=== PATIENT | male | born 1995 | race American Indian/Alaskan Native ===

== ENCOUNTER 2017-04-28 20:50 | Emergency (ER) | payer OTHER ==
[2017-04-28 21:41] VITALS: BP 144/74
[2017-04-28] MEDS ORDERED: NACL 0.9% 1000 ML 1,000 ML IV ONE (21:41)
[2017-04-28 22:37] LABS: Alanine Aminotransferase 23 units/L (7-56); BUN/Creatinine Ratio 8; Blood Urea Nitrogen 8 mg/dL (9-20); Hemolysis Index 8; Lipase 27 units/L (13-60)
[2017-04-28 22:54] LABS: Basophils % (Auto) 0.3 % (0.0-1.8); Eosinophils # (Auto) 0.8 K/mm3 (0.0-0.4); Eosinophils % (Auto) 11.4 % (0.0-4.3); Hematocrit 42.5 % (35.5-45.6); Hemoglobin 14.1 gm/dl (11.8-15.2); Lymphocytes % (Auto) 40.4 % (13.4-35.0); Mean Corpuscular HGB Conc 33 % (32-34); Mean Corpuscular Hemoglobin 29 pg (28-32); Mean Corpuscular Volume 87 fl (84-94); Monocytes # (Auto) 0.5 K/mm3 (0.0-0.8); Platelet Count 230 K/mm3 (140-440); Red Blood Count 4.87 M/mm3 (3.65-5.03); Red Cell Distribution Width 13.8 % (13.2-15.2)
[2017-04-28 23:06] LABS: INR 0.91 (0.87-1.13)
[2017-04-28 23:07] LABS: Partial Thromboplastin Time 33.4 Sec. (24.2-36.6)
--- NOTE | 2017-04-28 23:14 | Emergency Department Report ---
HPI - General Chief Complaint: GI Bleed Time Seen by Provider: 04/28/17 23:03 - [facility] HPI: Valeriano Sandoval The patient is a 22-year-old male presents with a chief complaint of rectal pain and bleeding. The patient states for 1 week he's had rectal pain and intermittent rectal bleeding when he has a bowel movement. The patient states he went to an urgent care facility 3 days ago was told that he likely has a hemorrhoid. The patient was given a referral to a interventional radiology tech but states he has not followed-up secondary to cost. Patient states she has pain when sitting down. Location: Rectum Duration: One week Quality: Pain Severity: Moderate Modifying factors: [see above] Context: [see above] Mode of transportation: [not driving] ED Past Medical Hx - Past Medical History Previous Medical History?: No Hx HIV: Yes (viral load undetectable. unknown CD4 count) - Surgical History Past Surgical History?: No - Family History Family history: no significant - Social History Smoking Status: Never Smoker Substance Use Type: None (denies illicit drug use), Alcohol (occasional) - Medications Home Medications: Home Medications Medication Instructions Recorded Confirmed Last Taken Type Docusate Sodium [Colace] 100 mg PO BID #60 capsule 04/28/17 Unknown Rx HYDROcodone/APAP 5-325 [[place] 1 - 2 each PO Q6HR PRN #14 tablet 04/28/17 Unknown Rx 5/325] Hydrocortisone [Anucort-HC SUPPOS] 25 mg RC BID #10 supp.rect 04/28/17 Unknown Rx Lidocaine Topical 2% 5Ml 5 ml AR BID PRN #20 tube 04/28/17 Unknown Rx [Xylocaine Topical 2% 5Ml] ED Review of Systems ROS: Stated complaint: RECTAL BLEEDING Other details as noted in HPI Gastrointestinal: hematochezia, other (rectal pain). denies: abdominal pain Physical Exam - Physical Exam Vital Signs: Vital Signs 04/28/17 21:37 Temperature 97.9 F Pulse Rate 56 L Respiratory 16 Rate Blood Pressure 144/74 O2 Sat by Pulse 100 Oximetry Physical Exam: GENERAL: The patient is well-developed well-nourished male lying on stretcher not appearing to be in acute distress. [] HEENT: Normocephalic. Atraumatic. Extraocular motions are intact. Patient has moist mucous membranes. NECK: Supple. Trachea midline CHEST/LUNGS: Clear to auscultation. There is no respiratory distress noted. HEART/CARDIOVASCULAR: Regular. There is no tachycardia. There is no gallop rub or murmur. ABDOMEN: Abdomen is soft, nontender. Patient has normal bowel sounds. There is no abdominal distention. SKIN: There is no rash. There is no edema. There is no diaphoresis. NEURO: The patient is awake, alert, and oriented. The patient is cooperative. The patient has normal speech MUSCULOSKELETAL: There is no evidence of acute injury. RECTUM: [place] tissue consistent with external hemorrhoid at left lateral aspect of rectum. Exquisitely tender to touch ED Course Vital Signs 04/28/17 21:37 Temperature 97.9 F Pulse Rate 56 L Respiratory 16 Rate Blood Pressure 144/74 O2 Sat by Pulse 100 Oximetry ED Medical Decision Making - Lab Data Result diagrams: 04/28/17 21:57 04/28/17 21:57 Laboratory Tests 04/28/17 04/28/17 04/28/17 21:57 21:57 21:57 WBC 7.3 RBC 4.87 Hgb 14.1 Hct 42.5 MCV 87 MCH 29 MCHC 33 RDW 13.8 Plt Count 230 Lymph % (Auto) 40.4 H [place] % (Auto) 7.0 Eos % (Auto) 11.4 H Baso % (Auto) 0.3 Lymph # 3.0 [place] # 0.5 Eos # 0.8 H Baso # 0.0 Seg Neutrophils % 40.9 Seg Neutrophils # 3.0 PT 12.7 INR 0.91 APTT 33.4 Sodium 142 Potassium 3.9 Chloride 101.6 Carbon Dioxide 31 H Anion Gap 13 BUN 8 L Creatinine 1.0 Estimated GFR > 60 BUN/Creatinine Ratio 8 Glucose 104 H Calcium 9.0 Total Bilirubin 0.20 AST 31 ALT 23 Alkaline Phosphatase 93 Total Protein 8.1 Albumin 4.0 Albumin/Globulin Ratio 1.0 Lipase 27 Blood Type Antibody Screen 04/28/17 21:57 WBC RBC Hgb Hct MCV MCH MCHC RDW Plt Count Lymph % (Auto) [place] % (Auto) Eos % (Auto) Baso % (Auto) Lymph # [place] # Eos # Baso # Seg Neutrophils % Seg Neutrophils # PT INR APTT Sodium Potassium Chloride Carbon Dioxide Anion Gap BUN Creatinine Estimated GFR BUN/Creatinine Ratio Glucose Calcium Total Bilirubin AST ALT Alkaline Phosphatase Total Protein Albumin Albumin/Globulin Ratio Lipase Blood Type B POSITIVE Antibody Screen Negative - EKG Data -: EKG Interpreted by Me EKG shows normal: sinus rhythm Rate: normal - EKG Data When compared to previous EKG there are: previous EKG unavailable Interpretation: nonspecific ST-T wave cris (early repolarization) - Differential Diagnosis hemorrhoids, anal fissure Critical care attestation.: If time is entered above; I have spent that time in minutes in the direct care of this critically ill patient, excluding procedure time. ED Disposition Clinical Impression: Hemorrhoids, external, Rectal pain Disposition: TO HOME OR SELFCARE Is pt being admited?: No Does the pt Need Aspirin: No Condition: Stable Instructions: Hemorrhoids (ED), Rectal Bleeding (ED) Additional Instructions: Return to the emergency department immediately should you develop worsening symptoms, fever, inability to tolerate food or liquid or any other concerns. Prescriptions: Docusate Sodium [Colace] 100 mg PO BID #60 capsule HYDROcodone/APAP 5-325 [[place] 5/325] 1 - 2 each PO Q6HR PRN #14 tablet PRN Reason: Pain Hydrocortisone [Anucort-HC SUPPOS] 25 mg RC BID #10 supp.rect Lidocaine Topical 2% 5Ml [Xylocaine Topical 2% 5Ml] 5 ml AR BID PRN #20 tube PRN Reason: Pain Referrals: KIRSTIN WHALEY MD [Primary Care Provider] - 3-5 Days YOCASTA HENDRICKSON MD [Staff Physician] - [facility] (Dr. Hendrickson is a interventional radiology tech. Please follow-up with him for further evaluation) Forms: Accompanied Note Time of Disposition: 23:33
[2017-04-28] MEDS ORDERED: LIDOCAINE VISCOUS 2% PO ONE (23:27)
[2017-04-28] MEDS ORDERED: LIDOCAINE VISCOUS 2% ONE (23:28)
== END 2017-04-28 23:51 | disposition home or self-care (01) ==
LOC: ED 20:50
DX: K64.4 Residual hemorrhoidal skin tags (principal); Z21 Asymptomatic human immunodeficiency virus [HIV] infection status
CPT/HCPCS: 36415; 80053; 83690; 85025; 85610; 85730; 86850; 86900; 86901; 93005; 93010

== ENCOUNTER 2018-09-10 05:16 | Emergency (ER) | payer SELFPAY ==
[2018-09-10 05:27] VITALS: BP 137/79
[2018-09-10] MEDS ORDERED: NORCO 5/325 PO ONE (06:42)
[2018-09-10] MEDS ORDERED: BOOSTRIX IM ONE (06:42)
[2018-09-10] MEDS ORDERED: XYLOCAINE 1% MPF 5 mL INFILTRATI ONE (06:43)
--- NOTE | 2018-09-10 07:35 | Emergency Department Report ---
Blank Doc - Documentation Documentation: Patient was briefly seen by me. When I entered patient's room to examine and speak to the patient about this history and injury patient stated he is breathing due to no Worker's Comp. information. Patient stated that he will return with Worker's Comp. information and will proceed with the laceration. I stated to the patient and educated that laceration should be sutured in a timely matter and the patient that he must return as soon as possible. Patient left AGAINST MEDICAL ADVICE.
== END 2018-09-10 07:50 | disposition left against medical advice (07) ==
LOC: ED 05:16
DX: S61.211A Laceration without foreign body of left index finger without damage to nail, initial encounter (principal); W26.8XXA Contact with other sharp object(s), not elsewhere classified, initial encounter; Y93.89 Activity, other specified; Y92.89 Other specified places as the place of occurrence of the external cause; Y99.8 Other external cause status
CPT/HCPCS: 90471; 90715; 99282